=== PATIENT | male | born 1995 | race Caucasian/White ===

== ENCOUNTER 2024-06-19 23:03 | Emergency (ER) | payer SELFPAY ==
[2024-06-19 23:07] VITALS: BP 133/81; PULSE 96; RESP 16; TEMP 36.8; O2SAT 99
[2024-06-20 00:19] LABS: Influenza A QL RT-PCR Negative (Negative); Influenza B QL RT-PCR Negative (Negative); RSV RNA, RT-PCR Negative (Negative); SARS-CoV-2 RNA PCR Negative (Negative)
--- NOTE | 2024-06-20 00:21 | ED.URI ---
HPI - URI/Sore Throat General Chief Complaint: Upper Respiratory Infection Stated Complaint: sinus infection Time Seen by Provider: 06/19/24 23:49 Source: patient Mode of arrival: ambulatory Limitations: no limitations History of Present Illness HPI Narrative: This is a 28-year-old male who presents to the ED for chief complaint of sinus pressure for the past 4 days. Patient reports congestion, worse on the right side. Also reports hearing loss in the right side. States that he frequently gets sinus infections. Denies any fevers, chills, sore throat, cough, chest pain, shortness breath, body aches Review of Systems Review of Systems: All systems as dictated in HPI Exam Narrative: GENERAL: Well-appearing, well-nourished, and in no acute distress. HEAD: Normocephalic, atraumatic. EYES: PERRLA and EOMI. ENT: Nares clear, no rhinorrhea or epistaxis. Mucous membranes moist. Oropharynx without tonsillar hypertrophy exudate or other lesions. NECK: Supple. No adenopathy or masses. CHEST: No respiratory distress. Clear to auscultation. No wheezes rales or rhonchi HEART: Regular rate and rhythm. No murmur heard. Normal peripheral pulses. ABDOMEN: Soft, nontender, nondistended, normal active bowel sounds. MSK: Normal range of motion. No edema. SKIN: Warm, dry, no rash. NEURO: Alert and oriented x4. No focal deficits. PSYCH: Normal mood and affect. Course Vital Signs Vital signs: Vital Signs Temperature 98.2 F 06/19/24 23:07 Pulse Rate 96 06/19/24 23:07 Respiratory Rate 16 06/19/24 23:07 Blood Pressure 133/81 06/19/24 23:07 Pulse Oximetry 99 06/19/24 23:07 Oxygen Delivery Room Air 06/19/24 23:07 Temperature 98.4 F 06/20/24 00:53 Pulse Rate 97 06/20/24 00:53 Respiratory Rate 18 06/20/24 00:53 Blood Pressure 129/81 06/20/24 00:53 Pulse Oximetry 100 06/20/24 00:53 Oxygen Delivery Room Air 06/20/24 00:53 MDM - URI/Sore Throat MDM Narrative Medical decision making narrative: This is a 28-year-old male who presents to the ED for chief complaint of sinus pressure and pain along with congestion over the past couple of days. Vitals are normal. Exam remarkable for the above. RO swabs are negative. Patient will be given Augmentin for sinusitis. Patient will be discharged in stable condition. Supportive measures discussed and return precautions given. Patient is understanding and agreeable with plan for discharge with PCP follow-up. Lab Data Labs: Lab Results 06/19/24 Range/Units 23:38 Influenza A (RT-PCR) Negative (Negative) Influenza B (RT-PCR) Negative (Negative) RSV (RT-PCR) Negative (Negative) SARS-CoV-2 RNA (RT-PCR) Negative (Negative) Discharge Plan Discharge Clinical Impression: Sinusitis Patient Disposition: Home, Self-Care Condition: Stable Instructions: Antibiotic Form Additional Instructions: Your exam today is reassuring. Please take Augmentin as prescribed. Follow-up with PCP. If you have any new or worsening symptoms please return to the ER for further evaluation. Patient Language: Hungarian Prescriptions: New amoxicillin-pot clavulanate 875-125 mg tablet 1 tablet PO Q12H Qty: 10 0RF Follow-up/Referrals: PHYSICIAN NOT ON STAFF,NONSTAFF [Primary Care Provider] - Time of Disposition: 00:22
--- OUTSIDE RECORDS SUMMARY | 2024-06-20 00:34 | XMS_ITS | Clinical Summary ---
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 20 Tablet 10/17/2023 Active naproxen (NAPROSYN) 500 mg tablet Take 1 Tablet (500 mg) by mouth 2 times daily with meals. 20 Tablet 10/17/2023 Active Social History Tobacco Use Types Packs/Day Years Used Date Smoking Tobacco: Never Passive Smoke Exposure: Never Smokeless Tobacco: Never Tobacco Cessation:Counseling Given: Not Answered Alcohol Use Standard Drinks/Week Comments Not Currently 0 (1 standard drink = 0.6 oz pur e alcohol) Feeling Safe Answer Date Recorded Are you in a relationship wi th someone who hurts you emotionally and/or physically? No 10/17/2023 Sex and Gender Information Value Date Recorded Sex Assigned at Not on file Legal Sex Male 6:24 PM CDT Gender Identity Not on file Sexual Orientation Not on file Last Filed Vital Signs Vital Sign Reading Time Taken Comments Blood Pressure 131/86 10/17/2023 5:07 PM CDT Pulse 84 10/17/2023 5:07 PM CDT Temperature 37.1 ??C (98.7 ??F) 10/17/2023 5:07 PM CD T Respiratory Rate 14 10/17/2023 5:07 PM CDT Oxygen Saturation 100% 10/17/2023 5:07 PM CDT Inhaled Oxygen Concentration - - Weight 72.6 kg (160 lb) 10/17/2023 2:32 PM CDT Height 175.3 cm (5' 9 ) 10/17/2023 2:32 PM CDT Body Mass Index 23.63 10/17/2023 2:32 PM CDT Plan of Treatment Health Maintenance Due Date Last Done Comments HPV VACCINES (1 - Male 3-dos e series) 2012 DTAP/TDAP/TD VACCINES (1 - Tdap) 2016 HEPATITIS B VACCINES (1 of 3 - 19+ 3-dose series) 2016 INFLUENZA VACCINE (#1) 2023 PNEUMOCOCCAL VACCINE 0-64 YEARS Aged Out No longer eligible based on patient's age to complete this topic
[2024-06-20 00:53] VITALS: BP 129/81; PULSE 97; RESP 18; TEMP 36.9; O2SAT 100
== END 2024-06-20 00:55 | disposition home or self-care (01) ==
LOC: ANHED 06-20 00:32
PROVIDERS: Emergency Provider Physician Assistant
DX: J32.9 Chronic sinusitis, unspecified (principal); Z20.822 Contact with and (suspected) exposure to COVID-19
CPT/HCPCS: 87637; 99283

== ENCOUNTER 2024-09-06 12:07 | Emergency (ER) | payer OTHER, SELFPAY ==
[2024-09-06 12:19] VITALS: BP 130/90; PULSE 117; RESP 16; TEMP 36.7; O2SAT 99
--- NOTE | 2024-09-06 12:32 | ED.URI ---
HPI - URI/Sore Throat General Chief Complaint: Upper Respiratory Infection Stated Complaint: CONGESTION/HEADACHE/SHIVERS/NEEDS WORK NOTE Time Seen by Provider: 09/06/24 12:25 Source: patient and RN notes reviewed Mode of arrival: ambulatory Limitations: no limitations History of Present Illness HPI Narrative: Patient presents today with a 3 day history of nasal congestion, headache, productive cough, and chills. States he ran a fever at onset of symptoms up to 100 but this has since resolved. Denies shortness of breath or chest pain. He has tried some [id number]-[id number] medication with some mild relief. No history of asthma or COPD. He does vape. Requesting a note to return to work. Related Data Home Medications ?Medication ?Instructions ?Recorded ?Confirmed ?Last Taken ?Type No Home Medications 09/06/24 09/06/24 Unknown History Allergies Allergy/AdvReac Type Severity Reaction Status Date / Time No Known Allergies Allergy Verified 09/06/24 12:19 Review of Systems Review of Systems: CONSTITUTIONAL: Denies body aches, or sweats.+ fever, chills EYES: Denies visual changes, redness, or discharge. ENT: Denies rhinorrhea, sore throat, or otalgia.+ congestion CARDIOVASCULAR: Denies chest pain, palpitations, or edema. RESPIRATORY: Denies dyspnea.+ cough GASTROINTESTINAL: Denies abdominal pain, nausea, vomiting, or diarrhea. GENITOURINARY: Denies dysuria or hematuria. SKIN: Denies rash, itching, or wounds. MUSCULOSKELETAL: Denies back pain, joint pain, or myalgia. NEUROLOGIC: Denies headache, numbness, tingling, or weakness. PSYCH: Denies depression or anxiety. PMFSH Social History Social History (Updated 09/06/24 @ 12:33 by Chel Balbuena, [facility], ) Smoking status: Current every day smoker Tobacco type: e-cigarettes/vaping Comments At time of signature, I have reviewed and agree with nursing past medical, surgical, social and family history unless otherwise noted. Please see nursing chart for further information. There is no relevant family history pertinent to the presenting complaint Exam Narrative: GENERAL: Well-appearing, well-nourished, and in no acute distress. HEAD: Normocephalic, atraumatic. EYES: EOMI. No redness or drainage. Conjunctivae normal. ENT: Mucous membranes pink and moist. Nares mildly congested. No rhinorrhea. TMs normal bilaterally. Throat normal. Uvula midline. NECK: Normal AROM. Supple. No lymphadenopathy. CHEST: No respiratory distress. Clear to auscultation. HEART: Regular rate and rhythm. No murmur appreciated. EXTREMITIES: Normal range of motion. No edema. SKIN: Warm, dry, no rash. Capillary refill normal. Normal skin turgor. NEURO: No focal deficits. Alert and oriented x3. Gait steady. PSYCH: Normal affect. No signs of depression or anxiety. Course Course Level of Care: Express Care Visit Vital Signs Vital signs: Vital Signs Temperature 98.1 F 09/06/24 12:19 Pulse Rate 117 H 09/06/24 12:19 Respiratory Rate 16 09/06/24 12:19 Blood Pressure 130/90 09/06/24 12:19 Pulse Oximetry 99 09/06/24 12:19 Temperature 98.1 F 09/06/24 12:19 Pulse Rate 117 H 09/06/24 12:19 Respiratory Rate 16 09/06/24 12:19 Blood Pressure 130/90 09/06/24 12:19 Pulse Oximetry 99 09/06/24 12:19 Reviewed MDM - URI/Sore Throat MDM Narrative Medical decision making narrative: Symptoms likely viral in etiology. Discussed [id number] medication use and duration of illness. No prescription medications indicated at this time. Anticipatory guidance given. Differential Diagnosis Differential diagnosis: Likely upper respiratory infection, otitis media, viral infection and bronchitis Critical Care Time Critical Care Time Critical Care Time: No Discharge Plan Discharge Clinical Impression: Upper respiratory infection Qualifiers: URI type: unspecified URI Qualified Code(s): J06.9 - Acute upper respiratory infection, unspecified Patient Disposition: Home Condition: Stable Instructions: Upper Respiratory Infection (DC) Additional Instructions: Your symptoms are likely due to a viral illness, which is not treated with antibiotics. Virus symptoms can last for up to 7-10days. Take Tylenol or ibuprofen for pain or fever. Consider Mucinex to break up any chest congestion. Rest and stay hydrated. Follow up with your PCP in 7 days if symptoms are not improving. Go to the ER immediately if you develop shortness of breath, difficulty swallowing, or any other concerning symptoms. Your blood pressure was elevated above 120/80 today at Urgent Care. This puts you above the threshold for follow up. Please schedule a followup visit with your personal physician as soon as possible, for further evaluation and treatment. Even blood pressure exceeding 120/80 may indicate pre-hypertension. Patient Language: Telugu Prescriptions: No Action No Home Medications Follow-up/Referrals: PHYSICIAN,FORMING MILL OPERATOR [Primary Care Provider] - Stand Alone Forms: Work/School Release IP Time of Disposition: 12:35
== END 2024-09-06 12:39 | disposition home or self-care (01) ==
PROVIDERS: Emergency Provider Nurse Practitioner
DX: J06.9 Acute upper respiratory infection, unspecified (principal); F17.290 Nicotine dependence, other tobacco product, uncomplicated
CPT/HCPCS: 99211; G0463